=== PATIENT | female | born 2000 | race Hispanic/Latino ===

== ENCOUNTER 2022-12-01 04:42 | Emergency (ER) | payer OTHER, SELFPAY ==
[2022-12-01 04:43] VITALS: BP 130/81; PULSE 81; RESP 16; TEMP 36.1; O2SAT 99; BMI 39.6
--- NOTE | 2022-12-01 05:13 | EX.ED.DYSGE1 ---
HPI History of Present Illness Chief Complaint: Ear Problem Informant: patient and spouse/S.O. Narrative Narrative: Patient is a 22-year-old female with no significant past medical history. She states that she was scratching at her right ear a few days ago and beginning on Wednesday noticed increased pain and swelling. She denies any discharge from the ear but states that she has been having persistent pain for the past 2 days. With concern for infection she presents for evaluation [facility] Medical History no medical history no medical history Home Medications amoxicillin 875 mg-potassium clavulanate 125 mg tablet 1 tab PO BID 7 days #14 tabs 12/01/22 [Rx Last Taken Unknown] hydrocodone-acetaminophen 5-325mg 5mg-325mg 1 tab PO Q6H PRN PRN Pain 3 days #12 TABLETS 12/01/22 [Rx Last Taken Unknown] dahhjoxe-peyptq-JH-thonzonm 3.3 mg-3 mg-10 mg-0.5 mg/mL ear drops,susp (Cortisporin-TC) 4 drp RIGHT EAR 4X/DAY 10 days #10 mL 12/01/22 [Rx Last Taken Unknown] Allergy/AdvReac Type Severity Reaction Status Date / Time No Known Allergies Allergy Verified 12/01/22 04:45 Social History Smoking Status: Never smoker [facility] ED Constitutional Constitutional ED: Denies chills or fever(s) ENT ENT ED: Reports ear pain; Denies rhinorrhea or sore throat Cardiovascular Cardiovascular: Denies chest pain Respiratory/Chest Respiratory/Chest: Denies cough or dyspnea Gastrointestinal Gastrointestinal: Denies abdominal pain, diarrhea, nausea or vomiting Genitourinary Genitourinary ED: Denies dysuria Musculoskeletal Musculoskeletal: Denies myalgias Integumentary Denies rash Neurologic Neurologic: Denies headache(s) Hematologic/Lymphatic Hematologic/Lymphatic: Denies easy bleeding or easy bruising EXAM Physical Exam Const Vital Signs: 12/01/22 04:43 Temperature 96.9 F L Temperature Source Temporal Pulse Rate 81 Respiratory Rate 16 Blood Pressure 130/81 H Blood Pressure Mean 97 Pulse Ox 99 Oxygen Delivery Method Room Air Positive well nourished and well developed General Appearance ED: well developed HEENT HEENT Narrative: Left TM and canal are normal Right canal is erythematous with purulent discharge and is so edematous that the TM cannot be visualized. There is pain with external manipulation of the right ear as well. No mastoid tenderness bilaterally No secondary changes to suggest malignant otitis externa Eyes PERRL and EOMs intact bilaterally Neck supple Neck Narrative: Positive anterior cervical lymphadenopathy noted No nuchal rigidity or meningeal signs present Resp normal respiratory effort and clear to auscultation bilaterally Cardio regular rate and regular rhythm Extremity normal to inspection Neuro oriented x3, CN's II-XII intact bilaterally and no sensory deficits noted Sensorium / Orientation: alert Motor Exam: strength 5/5 throughout Psych mental status grossly normal Skin no rashes or lesions noted MDM MDM MDM Narrative Medical decision making narrative: Patient presented to the ER afebrile with no nuchal rigidity or meningeal signs. Her complaint of ear pain has differential diagnosis of otitis media versus otitis externa versus eustachian tube. Exam confirms she has otitis externa with asymmetric swelling and discharge. However without pain along the mastoid region I doubt she has mastoiditis and therefore do not feel the need for imaging or laboratory studies. The patient's ear canal was so swollen that the ear wick will be placed to provide proper exposure of the otic antibiotic. As she does not have signs to suggest acute mastoiditis or malignant otitis externa there is no need for further work-up and to be placed on symptomatic medications and discharged home History & Record Review Discussion w/independent historian: Patient Discharge Plan Triage Chief Complaint: Ear Problem ED Provider: Misha Almaraz Dx/Rx/DC Orders Clinical Impression: Otitis externa Instructions: ED External Ear Infection (Adult) Prescriptions: New amoxicillin-pot clavulanate 875-125 mg tablet 1 tab PO BID 7 Days Qty: 14 0RF hydrocodone-acetaminophen 5-325 mg tablet 1 tab PO Q6H PRN PRN (Reason: Pain) 3 Days Qty: 12 0RF Cortisporin-TC 3.3-3-10-0.5 mg/mL drops,suspension 4 drp RIGHT EAR 4X/DAY 10 Days Qty: 10 0RF Primary Care Provider: Care Physician,No Primary Referrals: Jacob Da Silva MD [Med Staff - Active Staff] - NOT,DEFINED [Non-Staff] - Activity Restrictions/Additional Instructions: Please take your antibiotics as directed to help resolve your infection and follow-up with the ENT or return to the ER should you have any further concerns. Disposition Disposition: Home, Self Care Discharge Date/Time: 12/01/22 06:08
[2022-12-01] MEDS: Amox/Clavulanate 875 MG Tablet PO (05:43)
[2022-12-01] MEDS: HYDROcodone Bitartrate/Apap 5/325 Tablet PO (05:43)
[2022-12-01] MEDS: Neomycin/Polymyxin/Dexameth 5ML OPTH.BTL 4 DRP OTIC (05:49)
== END 2022-12-01 06:08 | disposition home or self-care (01) ==
PROVIDERS: Emergency Provider Emergency Medicine; Visit Provider Emergency Medicine
DX: H60.91 Unspecified otitis externa, right ear (principal)
CPT/HCPCS: 99283

== ENCOUNTER 2022-12-01 14:05 | Outpatient (CLI) | payer OTHER, SELFPAY ==
[2022-12-01 15:34] LABS: Hemoglobin A1c 4.6 % (3.8-5.6)
[2022-12-01 15:56] LABS: ALB/GLOB Ratio 0.8 RATIO (0.9-2.4); AST(SGOT) 18 U/L (15-37); Alanine Aminotransfer ALT/SGPT 30 U/L (13-56); Albumin, Serum 3.5 g/dL (3.2-5.0); Alkaline Phosphatase 72 U/L (45-117); Anion Gap 7 (5-15); BUN 8 mg/dL (7-18); BUN/Creat Ratio 15.5 RATIO (10-20); Calcium,Total 8.6 mg/dL (8.5-10.1); Chloride 109 mmol/L (98-107); Creatinine, Serum 0.52 mg/dL (0.55-1.02); EST Glomerular Filtration Rate 154 mL/min (>60); Est Glom Filt Rate - Afr Amer 187 mL/min (>60); Globulin 4.4 g/dL (2.2-4.2); Glucose 86 mg/dL (74-106); Potassium 3.6 mmol/L (3.5-5.1); Protein, Total 7.9 g/dL (6.4-8.2); Sodium Level 139 mmol/L (136-145); Thyroid Stim Hormone (TSH) 0.92 uIU/mL (0.358-3.74)
== END 2022-12-01 23:59 | disposition home or self-care (01) ==
LOC: BIMLAB 14:05
PROVIDERS: Visit Provider Internal Medicine
DX: Z13.1 Encounter for screening for diabetes mellitus (principal); Z83.3 Family history of diabetes mellitus; Z83.49 Family history of other endocrine, nutritional and metabolic diseases; Z13.29 Encounter for screening for other suspected endocrine disorder
CPT/HCPCS: 36415; 80053; 83036; 84443